=== PATIENT | male | born 1935 | race African-American/Black ===

== ENCOUNTER 2017-04-10 16:35 | Emergency (ER) | payer MEDICARE ==
[~2017-04-10] VITALS: Ht 188 cm; Wt 95.0 kg
[~2017-04-10 16:35] MED LIST: ASPI-516 CHEW; DOXA1TAB36 PO; GABA300C5 PO; GLIP10TA6 PO; GLIP5TAB8 PO; PRAV40TA2 PO
[2017-04-10 17:02] VITALS: BP 191/118; PULSE 110; RESP 32; TEMP 98.5; O2SAT 100
[2017-04-10] MEDS ORDERED: RESP: ALBUTEROL 2.5 MG/IPRATROPIUM 0.5 MG NEB (SCH) INH ONE (17:15)
[2017-04-10] MEDS ORDERED: SODIUM CHLORIDE 0.9% FLUSH 10 ML FLUSH IVF PRN (17:15)
[2017-04-10] MEDS ORDERED: AMLO5TAB2 PO (17:17)
[2017-04-10] MEDS ORDERED: METH1TAB25 (17:17)
[2017-04-10] MEDS ORDERED: OCUVTAB PO (17:17)
[2017-04-10] MEDS ORDERED: FEXO15TA PO (17:17)
[2017-04-10] MEDS ORDERED: MULT-84 (17:17)
[2017-04-10] MEDS ORDERED: ATOR40TA16 PO (17:17)
[2017-04-10] MEDS ORDERED: OMEG100046 (17:17)
--- NOTE | 2017-04-10 17:20 | PD ---
HPI Chief Complaint: Respiratory Symptoms Time Seen by Provider: 17:13 Travel History International Travel<30 days: No Contact w/Intl Traveler<30days: No Traveled to known affect area: No History of Present Illness HPI 81-year-old male patient with history of atrial fibrillation, hypertension, diabetes, presents to the ER after 3 week cruise complaining of bilateral foot pain, he states that it comes and goes and is currently a 3 out of 10 in the bottom of his left foot. While being examined, he was noted to be an mild respiratory distress and tachypneic. Patient states that he has noticed that her last few days. He has not noticed any foot swelling or leg pains. He denies any chest pains, or fevers or other symptoms. However, he does note that he has been sweaty a lot. Modifying Factors: None Associated Signs & Symptoms: Tachypneic, bilateral foot pains Risk Factors: Recent cruise, A. fib PFSH Past Medical History Hx Anticoagulant Therapy: Yes (asa 81mg) Arthritis: No Asthma: No Autoimmune Disease: No Heart Rhythm Problems: Yes Cancer: Yes (PROSTATE CA) Cardiovascular Problems: Yes High Cholesterol: Yes Chest Pain: No Congestive Heart Failure: No COPD: No Cerebrovascular Accident: No Diabetes: Yes Patient Takes Glucophage: No Diminished Hearing: No Endocrine: Yes GERD: No Glaucoma: No Genitourinary: Yes Headaches: No Hepatitis: No Hiatal Hernia: No Hypertension: Yes Immune Disorder: No Implanted Vascular Access Dvce: Yes Kidney Stones: No Musculoskeletal: No Neurologic: No Psychiatric: No Reproductive: No Respiratory: Yes Myocardial Infarction: No Radiation Therapy: Yes Renal Failure: No Seizures: No Sleep Apnea: Yes (BI PAP ) Thyroid Disease: No Ulcer: No PNEUMOCCOCAL Vaccine (Year): 2 ?: Not Past Surgical History Abdominal Surgery: Yes (APPENDIX ) AICD: No Appendectomy: Yes ("35 YEARS AGO") Cardiac Surgery: No Ear Surgery: No Endocrine Surgery: No Eye Surgery: Yes (LEFT CATARACT WITH LENS IMPLANT & LEFT EYE TEAR REPAIR) Genitourinary Surgery: No Gynecologic Surgery: No Pacemaker: No Thoracic Surgery: No Other Surgery: Yes Social History Alcohol Use: Yes (RARELY) Tobacco Use: No Substance Use: No Allergies-Medications (Allergen,Severity, Reaction): Coded Allergies: No Known Allergies (Verified , 04/18/16) Reported Meds & Prescriptions Reported Meds & Active Scripts Active Reported Ocuvite (Multiple Vitamins W/ Minerals) 1 Tab 1 Tab PO DAILY Fish Oil 1,000 mg Softgel ([place]-3/Dha/Epa/Fish Oil) 1,000 Mg (120 Mg-180 Mg) Capsule Daily Vitamin (Multiple Vitamin) 1 Tab Tab Msm (Methylsulfonylmethane) 1,000 Mg Tab Lily Allergy (Fexofenadine HCl) 180 Mg Tab 180 Mg PO DAILY Amlodipine (Amlodipine Besylate) 5 Mg Tab 5 Mg PO DAILY Atorvastatin (Atorvastatin Calcium) 40 Mg Tab 40 Mg PO HS Aspirin 81 Mg Chew 81 Mg CHEW HS Doxazosin (Doxazosin Mesylate) 1 Mg Tab 1 Mg PO HS Gabapentin 300 Mg Cap 300 Mg PO BID Glipizide 5 Mg Tab 5 Mg PO AC DINNER Take 30 minutes before a meal Glipizide 10 Mg Tab 10 Mg PO DAILY Take 30 minutes before a meal Review of Systems Except as stated in HPI: all other systems reviewed are Neg Physical Exam Narrative GENERAL: Well-developed elderly -[place] Citizen male patient currently in mild respiratory distress. Awake and oriented 3. SKIN: Focused skin assessment warm/mildly diaphoretic. HEAD: Atraumatic. Normocephalic. EYES: Pupils equal and round. No scleral icterus. No injection or drainage. ENT: No nasal bleeding or discharge. Mucous membranes pink and moist. NECK: Trachea midline. No JVD. CARDIOVASCULAR: Irregularly irregular. RESPIRATORY: No accessory muscle use. Clear to auscultation. Breath sounds equal bilaterally. GASTROINTESTINAL: Abdomen soft, non-tender, nondistended. Hepatic and splenic margins not palpable. MUSCULOSKELETAL: No obvious deformities. No clubbing. No cyanosis. No edema. EXTREMITIES: No clubbing, cyanosis, or edema. No joint tenderness, effusion, or edema noted. No calf tenderness. Bilateral Homans sign negative. Pulses are present and equal bilaterally. NEUROLOGICAL: Awake and alert. No obvious cranial nerve deficits. Motor grossly within normal limits. Normal speech. PSYCHIATRIC: Appropriate mood and affect; insight and judgment normal. Data Data Last Documented VS Vital Signs Date Time Temp Pulse Resp B/P (MAP) Pulse Ox O2 Delivery O2 Flow Rate FiO2 04/10/17 17:57 90 20 138/77 (97) 99 Nasal Cannula 2.00 04/10/17 17:02 98.5 Orders Orders Complete Blood Count With Diff (04/10/17 17:13) Comprehensive Metabolic Panel (04/10/17 17:13) B-Type Natriuretic Peptide (04/10/17 17:13) D-Dimer (04/10/17 17:13) Act Partial Throm Time (Ptt) (04/10/17 17:13) Prothrombin Time / Inr (Pt) (04/10/17 17:13) Ckmb (Isoenzyme) Profile (04/10/17 17:13) Troponin I (04/10/17 17:13) Iv Access Insert/Monitor (04/10/17 17:13) Electrocardiogram (04/10/17 17:13) Ecg Monitoring (04/10/17 17:13) Oximetry (04/10/17 17:13) Oxygen Administration (04/10/17 17:13) Chest, Single Ap (04/10/17 17:13) Sodium Chloride 0.9% Flush (Ns Flush) (04/10/17 17:15) Albuterol-Ipratropium Neb (Duoneb Neb) (04/10/17 17:15) CKMB (04/10/17 17:15) CKMB% (04/10/17 17:15) Ventilation & Perfusion Scan (04/10/17 17:58) Labs Laboratory Tests Test 04/10/17 17:15 White Blood Count 6.5 TH/MM3 Red Blood Count 5.05 MIL/MM3 Hemoglobin 13.9 GM/DL Hematocrit 45.6 % Mean Corpuscular Volume 90.1 FL Mean Corpuscular Hemoglobin 27.4 PG Mean Corpuscular Hemoglobin Concent 30.5 % Red Cell Distribution Width 13.1 % Platelet Count 227 TH/MM3 Mean Platelet Volume 9.0 FL Neutrophils (%) (Auto) 71.0 % Lymphocytes (%) (Auto) 21.2 % Monocytes (%) (Auto) 6.2 % Eosinophils (%) (Auto) 1.2 % Basophils (%) (Auto) 0.4 % Neutrophils # (Auto) 4.6 TH/MM3 Lymphocytes # (Auto) 1.4 TH/MM3 Monocytes # (Auto) 0.4 TH/MM3 Eosinophils # (Auto) 0.1 TH/MM3 Basophils # (Auto) 0.0 TH/MM3 CBC Comment AUTO DIFF Differential Comment AUTO DIFF CONFIRMED Platelet Estimate NORMAL Platelet Morphology Comment NORMAL Red Cell Morphology Comment NORMAL Prothrombin Time 11.0 SEC Prothromb Time International Ratio 1.1 RATIO Activated Partial Thromboplast Time 25.4 SEC D-Dimer Quantitative (PE/DVT) 1.52 MG/L FEU Blood Urea Nitrogen 20 MG/DL Creatinine 1.40 MG/DL Random Glucose 255 MG/DL Total Protein 7.5 GM/DL Albumin 3.9 GM/DL Calcium Level 8.9 MG/DL Alkaline Phosphatase 81 U/L Aspartate Amino Transf (AST/SGOT) 25 U/L Alanine Aminotransferase (ALT/SGPT) 27 U/L Total Bilirubin 1.2 MG/DL Sodium Level 135 MEQ/L Potassium Level 4.1 MEQ/L Chloride Level 102 MEQ/L Carbon Dioxide Level 21.0 MEQ/L Anion Gap 12 MEQ/L Estimat Glomerular Filtration Rate 59 ML/MIN Total Creatine Kinase 186 U/L Creatine Kinase MB 3.5 NG/ML Troponin I 0.02 NG/ML B-Type Natriuretic Peptide 77 PG/ML MDM Medical Decision Making Medical Screen Exam Complete: Yes Emergency Medical Condition: Yes Medical Record Reviewed: Yes Interpretation(s) EKG shows A. fib with aberrant conduction a rate of 80 bpm. Laboratory Tests Test 04/10/17 17:15 Mean Corpuscular Hemoglobin Concent 30.5 % (32.0-36.0) Neutrophils (%) (Auto) 71.0 % (16.0-70.0) D-Dimer Quantitative (PE/DVT) 1.52 MG/L FEU (0.00-0.50) Blood Urea Nitrogen 20 MG/DL (7-18) Creatinine 1.40 MG/DL (0.60-1.30) Random Glucose 255 MG/DL (74-106) Total Bilirubin 1.2 MG/DL (0.2-1.0) Sodium Level 135 MEQ/L (136-145) Estimat Glomerular Filtration Rate 59 ML/MIN (>89) Last 24 hours Impressions Chest X-Ray 04/10/17 7293 Signed Impressions: Service Date/Time: Monday, April 10, 2017 17:26 - CONCLUSION: 1. Lungs are clear. 2. Stable bony changes with a probable bone island in the anterior aspect of the right sixth rib and old healed fracture deformities of the anterolateral aspect of the left upper chest Khurram Vázquez MD Differential Diagnosis CHF versus pneumonia versus PE versus COPD exacerbation/bronchitis versus dysrhythmias Narrative Course Initial chest x-ray did not show any signs of acute pulmonary processes. He is in A. fib which she has history of. D-dimer is elevated and VQ scan was ordered for further evaluation. His creatinine is elevated and BUN is elevated as well. Examination of the foot did not show any signs of significant trauma or point tenderness. The area that appears he is having discomfort on is on the plantar foot. He does not a signs of trauma or ulcers. He denies any injuries. Neurovascularly intact. He apparently has had a similar episode before and it had gone away on its own. By time he got to the ER, the symptoms have gone away on the right foot and he is only having mild symptoms on the left foot. Physician Communication Physician Communication Case is signed out to Dr. Salazar at 7 PM pending VQ scan. Disposition based on VQ scan. Diagnosis Primary Impression: Foot pain, bilateral Additional Impression: Dyspnea on exertion Condition: Stable Fabricio Goldman MD Apr 10, 2017 17:20
[2017-04-10 17:21] VITALS: O2SAT 97
[2017-04-10 17:32] LABS: CHLORIDE 102 MEQ/L (98-107); POTASSIUM 4.1 MEQ/L (3.5-5.1); SODIUM (NA) 135 MEQ/L (136-145)
[2017-04-10 17:36] LABS: ANION GAP 12 MEQ/L (5-15); BLOOD UREA NITROGEN 20 MG/DL (7-18)
[2017-04-10 17:39] LABS: ALT (GPT) 27 U/L (12-78); AST (GOT) 25 U/L (15-37); GLOMERULAR FILTRATION RATE 59 ML/MIN (>89)
[2017-04-10 17:41] LABS: TOTAL BILIRUBIN ADULT 1.2 MG/DL (0.2-1.0)
[2017-04-10 17:42] LABS: ALKALINE PHOSPHATASE 81 U/L (45-117); CREATINE KINASE 186 U/L (39-308)
[2017-04-10 17:46] LABS: APTT (PATIENT) 25.4 SEC (24.3-30.1); INTERNATIONAL NORMALIZED RATIO 1.1 RATIO
[2017-04-10 17:49] LABS: AUTOMATED NEUTROPHIL # 4.6 TH/MM3 (1.8-7.7); BASOPHIL % 0.4 % (0.0-2.0); EOSINOPHIL # 0.1 TH/MM3 (0-0.4); EOSINOPHIL % 1.2 % (0.0-4.0); HEMATOCRIT 45.6 % (39.0-51.0); LYMPH % 21.2 % (9.0-44.0); LYMPHOCYTE # 1.4 TH/MM3 (1.0-4.8); MEAN CELL VOLUME 90.1 FL (80.0-100.0); MEAN CORPUSCULAR HEMOGLOBIN 27.4 PG (27.0-34.0); MEAN CORPUSCULAR HGB CONC 30.5 % (32.0-36.0); MONO % 6.2 % (0.0-8.0); PLATELET COUNT 227 TH/MM3 (150-450); RED BLOOD COUNT 5.05 MIL/MM3 (4.50-5.90); RED CELL DISTRIBUTION WIDTH 13.1 % (11.6-17.2); WHITE BLOOD COUNT 6.5 TH/MM3 (4.0-11.0)
--- NOTE | 2017-04-10 17:50 | RADRPT ---
EXAM DATE/TIME: 04/10/2017 17:26 [facility] COMPARISON: CHEST SINGLE AP, April 18, 2016, 10:14. INDICATIONS : Shortness of breath. MEDICAL HISTORY : None. SURGICAL HISTORY : None. ENCOUNTER: Initial ACUITY: 1 day PAIN SCORE: 0/10 LOCATION: Bilateral chest FINDINGS: A single view of the chest demonstrates the lungs to be symmetrically aerated without evidence of mas s, infiltrate or effusion. The cardiomediastinal contours are unremarkable. Stable, probable bone is land in the anterior aspect of the right sixth rib. Old healed fracture deformities the posterior lat eral aspect of the left upper chest. Mild degenerative spurring of the dorsal spine. CONCLUSION: 1. Lungs are clear. 2. Stable bony changes with a probable bone island in the anterior aspect of the right sixth rib and old healed fracture deformities of the anterolateral aspect of the left upper chest Khurram Vázquez MD on April 10, 2017 at 17:45 Board Certified Radiologist. This report was verified electronically.
[2017-04-10 17:55] LABS: CKMB 3.5 NG/ML (0.5-3.6)
[2017-04-10 17:57] VITALS: BP 138/77; PULSE 90; RESP 20; O2SAT 99
[2017-04-10 18:04] LABS: HEMO FLAGS AUTO DIFF
[2017-04-10 18:51] LABS: PLATELET ESTIMATE SMEAR NORMAL (NORMAL); PLATELET MORPHOLOGY NORMAL (NORMAL); SCAN/DIFF AUTO DIFF CONFIRMED
[2017-04-10 20:07] VITALS: BP 173/88; PULSE 91; RESP 16; O2SAT 99
--- NOTE | 2017-04-10 20:10 | RADRPT ---
EXAM DATE/TIME: 04/10/2017 19:03 [facility] COMPARISON: No previous studies available for comparison. INDICATIONS : Dyspnea and tachypneic. DOSE: 1.1 mCi Tc99m DTPA 8.8 mCi Tc99m MAA MEDICAL HISTORY : Carcinoma, prostate. Diabetes mellitus type 2. Hypertension. SURGICAL HISTORY : Appendectomy. ENCOUNTER: Initial ACUITY: 1 day PAIN SCALE: 0/10 LOCATION: Bilateral chest TECHNIQUE: Following five minutes of tidal breathing of DTPA aerosol, planar images of the lungs were performed in eight projections. The patient was then injected with MAA, and eight-view perfusion scan was perf ormed. FINDINGS: There is a homogeneous pattern of aerosol delivery to the periphery of both lungs. No focal ventilat ory defects are seen. The perfusion lung scan demonstrates a homogenous pattern of uptake in both lungs. No segmental or s ubsegmental defects are seen. CONCLUSION: 1. Negative for pulmonary embolism. Salvador Mathews MD on April 10, 2017 at 20:07 Board Certified Radiologist. This report was verified electronically.
--- NOTE | 2017-04-10 20:21 | PD ---
Physical Exam Narrative Patient signed out to me by Dr. Harp. Please see her documentation for complete details. 3, patient is an 81-year-old male who came in complaining of a tingling sensation in his feet. He says he believes he probably has neuropathy from his diabetes. He says the sensation is gone now. Per Dr. Harp, he appeared to On arrival. Patient states he never felt short of breath, but he does get very anxious when he comes to Hospital medical's when he starts breathing hard. He has been feeling fine, has not had any chest pain or cough or fevers. Currently he has no complaints. Exam shows lungs are clear to auscultation. Oxygen saturation is in the high 90s on room air. Pulse is in the 80s. Data Data Last Documented VS Vital Signs Date Time Temp Pulse Resp B/P (MAP) Pulse Ox O2 Delivery O2 Flow Rate FiO2 04/10/17 20:07 91 16 173/88 (116) 99 Nasal Cannula 2.00 04/10/17 17:02 98.5 Orders Orders Complete Blood Count With Diff (04/10/17 17:13) Comprehensive Metabolic Panel (04/10/17 17:13) B-Type Natriuretic Peptide (04/10/17 17:13) D-Dimer (04/10/17 17:13) Act Partial Throm Time (Ptt) (04/10/17 17:13) Prothrombin Time / Inr (Pt) (04/10/17 17:13) Ckmb (Isoenzyme) Profile (04/10/17 17:13) Troponin I (04/10/17 17:13) Iv Access Insert/Monitor (04/10/17 17:13) Electrocardiogram (04/10/17 17:13) Ecg Monitoring (04/10/17 17:13) Oximetry (04/10/17 17:13) Oxygen Administration (04/10/17 17:13) Chest, Single Ap (04/10/17 17:13) Sodium Chloride 0.9% Flush (Ns Flush) (04/10/17 17:15) Albuterol-Ipratropium Neb (Duoneb Neb) (04/10/17 17:15) CKMB (04/10/17 17:15) CKMB% (04/10/17 17:15) Ventilation & Perfusion Scan (04/10/17 17:58) Labs Laboratory Tests Test 04/10/17 17:15 White Blood Count 6.5 TH/MM3 Red Blood Count 5.05 MIL/MM3 Hemoglobin 13.9 GM/DL Hematocrit 45.6 % Mean Corpuscular Volume 90.1 FL Mean Corpuscular Hemoglobin 27.4 PG Mean Corpuscular Hemoglobin Concent 30.5 % Red Cell Distribution Width 13.1 % Platelet Count 227 TH/MM3 Mean Platelet Volume 9.0 FL Neutrophils (%) (Auto) 71.0 % Lymphocytes (%) (Auto) 21.2 % Monocytes (%) (Auto) 6.2 % Eosinophils (%) (Auto) 1.2 % Basophils (%) (Auto) 0.4 % Neutrophils # (Auto) 4.6 TH/MM3 Lymphocytes # (Auto) 1.4 TH/MM3 Monocytes # (Auto) 0.4 TH/MM3 Eosinophils # (Auto) 0.1 TH/MM3 Basophils # (Auto) 0.0 TH/MM3 CBC Comment AUTO DIFF Differential Comment AUTO DIFF CONFIRMED Platelet Estimate NORMAL Platelet Morphology Comment NORMAL Red Cell Morphology Comment NORMAL Prothrombin Time 11.0 SEC Prothromb Time International Ratio 1.1 RATIO Activated Partial Thromboplast Time 25.4 SEC D-Dimer Quantitative (PE/DVT) 1.52 MG/L FEU Blood Urea Nitrogen 20 MG/DL Creatinine 1.40 MG/DL Random Glucose 255 MG/DL Total Protein 7.5 GM/DL Albumin 3.9 GM/DL Calcium Level 8.9 MG/DL Alkaline Phosphatase 81 U/L Aspartate Amino Transf (AST/SGOT) 25 U/L Alanine Aminotransferase (ALT/SGPT) 27 U/L Total Bilirubin 1.2 MG/DL Sodium Level 135 MEQ/L Potassium Level 4.1 MEQ/L Chloride Level 102 MEQ/L Carbon Dioxide Level 21.0 MEQ/L Anion Gap 12 MEQ/L Estimat Glomerular Filtration Rate 59 ML/MIN Total Creatine Kinase 186 U/L Creatine Kinase MB 3.5 NG/ML Troponin I 0.02 NG/ML B-Type Natriuretic Peptide 77 PG/ML MDM Supervised Visit with JOSE A: No Narrative Course Troponin is negative. VQ scan is negative for PE. Patient is comfortable with discharge at this time. He is advised follow-up with his primary care doctor. Advised to return to the ED as needed for any worsening symptoms. Diagnosis Primary Impression: Neuropathy Patient Instructions: Diabetic Peripheral Neuropathy (ED), General Instructions Additional Instruction: Follow-up with your primary care doctor. He can take Tylenol for any pain. Return to the ED as needed for any worsening symptoms. Disposition: 01 DISCHARGE HOME Condition: Stable Monserrat Salazar MD Apr 10, 2017 20:21
--- NOTE | 2017-04-11 12:51 | EKG ---
Date Performed: 04/10/2017 Time Performed: 17:03:44 PTAGE: 81 years EKG: Atrial flutter with variable AV conduction Left axis deviation. Left anterior fascicular bl ock. Ventricular premature complex. Compared to PREVIOUS TRACING the patient is no longer is a Sinus rhythm . PREVIOUS TRACIN04/18/2016 13.42 DOCTOR: Raffy Waters Interpretating Date/Time 04/11/2017 12:49:32
== END 2017-04-10 20:58 | disposition home or self-care (01) ==
LOC: PHED 16:35
DX: E11.42 Type 2 diabetes mellitus with diabetic polyneuropathy (principal); E78.00 Pure hypercholesterolemia, unspecified; I10 Essential (primary) hypertension; M79.671 Pain in right foot; M79.672 Pain in left foot; R06.82 Tachypnea, not elsewhere classified; Z79.84 Long term (current) use of oral hypoglycemic drugs
CPT/HCPCS: 71010; 78582; 80053; 82550; 82552; 83880; 84484; 85025; 85379; 85610; 85730; 93005; 94664; 99285; A9540; A9567

== ENCOUNTER 2017-06-08 11:01 | Emergency (ER) | payer MEDICARE ==
[~2017-06-08] VITALS: Ht 188 cm; Wt 95.0 kg
[~2017-06-08 11:01] MED LIST changes: +AMLO5TAB2 PO; +ATOR40TA16 PO; +FEXO15TA PO; +METH1TAB25; +MULT-84; +OCUVTAB PO; +OMEG100046; -PRAV40TA2 PO
[2017-06-08 11:04] VITALS: BP 158/84; PULSE 65; RESP 16; TEMP 98.1; O2SAT 98
[2017-06-08] MEDS ORDERED: WARF-58 PO (11:25)
[2017-06-08] MEDS ORDERED: ECHI380C3 PO (11:25)
[2017-06-08] MEDS ORDERED: VITA250T25 PO (11:25)
[2017-06-08] MEDS ORDERED: VITA250T5 PO (11:25)
--- NOTE | 2017-06-08 11:39 | PD ---
HPI Chief Complaint: Edema Time Seen by Provider: 11:22 Travel History International Travel<30 days: No Contact w/Intl Traveler<30days: No Traveled to known affect area: No History of Present Illness HPI This 81-year-old male is complaining of pain in his left wrist. Says the pain started yesterday. It is been quite painful and is especially painful when he extends his fingers. He has not had any fever or chills. He has no history of gout or any other arthritis. He had does have a history of hypertension, diabetes and atrial fibrillation. He was started on Coumadin last week. He is not aware of any history of arthritis or other joint disease. He is quite active and does not recall any injury PFSH Past Medical History Hx Anticoagulant Therapy: Yes (COUMADIN) Arthritis: No Asthma: No Autoimmune Disease: No Heart Rhythm Problems: Yes Cancer: Yes (PROSTATE CA) Cardiovascular Problems: Yes High Cholesterol: Yes Chest Pain: No Congestive Heart Failure: No COPD: No Cerebrovascular Accident: No Diabetes: Yes Patient Takes Glucophage: No Diminished Hearing: No Endocrine: Yes GERD: No Glaucoma: No Genitourinary: Yes Headaches: No Hepatitis: No Hiatal Hernia: No Hypertension: Yes Immune Disorder: No Implanted Vascular Access Dvce: Yes Kidney Stones: No Musculoskeletal: No Neurologic: No Psychiatric: No Reproductive: No Respiratory: Yes Myocardial Infarction: No Radiation Therapy: Yes Renal Failure: No Seizures: No Sleep Apnea: Yes (BI PAP ) Thyroid Disease: No Ulcer: No Influenza Vaccination: Yes PNEUMOCCOCAL Vaccine (Year): 2 Past Surgical History Abdominal Surgery: Yes (APPENDIX ) AICD: No Appendectomy: Yes ("35 YEARS AGO") Cardiac Surgery: No Ear Surgery: No Endocrine Surgery: No Eye Surgery: Yes (LEFT CATARACT WITH LENS IMPLANT & LEFT EYE TEAR REPAIR) Genitourinary Surgery: No Gynecologic Surgery: No Pacemaker: No Thoracic Surgery: No Other Surgery: Yes Social History Alcohol Use: Yes (RARELY) Tobacco Use: No Substance Use: No Allergies-Medications (Allergen,Severity, Reaction): Coded Allergies: No Known Allergies (Verified Adverse Reaction, Unknown, 06/08/17) Reported Meds & Prescriptions Reported Meds & Active Scripts Active Reported Warfarin 3 Mg Tab 3 Mg PO DAILY Vitamin B-12 (Cyanocobalamin) 250 Mcg Tab 250 Mcg PO DAILY Vitamin B-1 (Thiamine HCl) 250 Mg Tab 250 Mg PO DAILY Echinacea Herb (Echinacea) 380 Mg Capsule 760 Mg PO DAILY Ocuvite (Multiple Vitamins W/ Minerals) 1 Tab 1 Tab PO DAILY Fish Oil 1,000 mg Softgel ([place]-3/Dha/Epa/Fish Oil) 1,000 Mg (120 Mg-180 Mg) Capsule Daily Vitamin (Multiple Vitamin) 1 Tab Tab Msm (Methylsulfonylmethane) 1,000 Mg Tab Lily Allergy (Fexofenadine HCl) 180 Mg Tab 180 Mg PO DAILY Amlodipine (Amlodipine Besylate) 5 Mg Tab 5 Mg PO DAILY Atorvastatin (Atorvastatin Calcium) 40 Mg Tab 40 Mg PO HS Doxazosin (Doxazosin Mesylate) 1 Mg Tab 1 Mg PO HS Gabapentin 300 Mg Cap 300 Mg PO BID Glipizide 5 Mg Tab 10 Mg PO AC DINNER Take 30 minutes before a meal Glipizide 10 Mg Tab 10 Mg PO DAILY Take 30 minutes before a meal Review of Systems General / Constitutional: No: Fever, Chills Eyes: No: Blurred Vision, Photophobia HENT: No: Headaches, Vertigo Cardiovascular: No: Chest Pain or Discomfort, Palpitations Respiratory: No: Cough, Shortness of Breath Gastrointestinal: No: Nausea, Vomiting Genitourinary: No: Urgency, Frequency Musculoskeletal: Positive: Arthralgias, Pain Skin: No Rash, No Itching Neurologic: No: Weakness Psychiatric: No: Anxiety Hematologic/Lymphatic: No: Easy Bruising Physical Exam Narrative GENERAL: Well-developed male appears much younger than his stated age SKIN: Focused skin assessment warm/dry. HEAD: Atraumatic. Normocephalic. EYES: Pupils equal and round. No scleral icterus. No injection or drainage. ENT: No nasal bleeding or discharge. Mucous membranes pink and moist. NECK: Trachea midline. No JVD. MUSCULOSKELETAL: No obvious deformities. No clubbing. No cyanosis. No edema. Examination of the left wrist shows some tenderness on the dorsum of the wrist. It is not warm. Minimal swelling. Any movement is uncomfortable NEUROLOGICAL: Awake and alert. No obvious cranial nerve deficits. Motor grossly within normal limits. Normal speech. PSYCHIATRIC: Appropriate mood and affect; insight and judgment normal. Data Data Last Documented VS Vital Signs Date Time Temp Pulse Resp B/P (MAP) Pulse Ox O2 Delivery O2 Flow Rate FiO2 06/08/17 11:04 98.1 65 16 158/84 (108) 98 Orders Orders Wrist, Complete ([id number]) (06/08/17 11:29) Complete Blood Count With Diff (06/08/17 11:33) Basic Metabolic Panel (Bmp) (06/08/17 11:33) Prothrombin Time / Inr (Pt) (06/08/17 11:33) Act Partial Throm Time (Ptt) (06/08/17 11:33) Acetamin-Hydrocod 325-5 Mg (Ridgely 5-325 (06/08/17 11:45) Uric Acid (06/08/17 11:33) Splint Or Brace Apply/Monitor (06/08/17 11:35) Labs Laboratory Tests Test 06/08/17 11:45 White Blood Count 8.1 TH/MM3 Red Blood Count 4.51 MIL/MM3 Hemoglobin 12.7 GM/DL Hematocrit 40.3 % Mean Corpuscular Volume 89.2 FL Mean Corpuscular Hemoglobin 28.1 PG Mean Corpuscular Hemoglobin Concent 31.6 % Red Cell Distribution Width 12.9 % Platelet Count 196 TH/MM3 Mean Platelet Volume 8.5 FL Neutrophils (%) (Auto) 78.1 % Lymphocytes (%) (Auto) 12.3 % Monocytes (%) (Auto) 8.4 % Eosinophils (%) (Auto) 0.6 % Basophils (%) (Auto) 0.6 % Neutrophils # (Auto) 6.4 TH/MM3 Lymphocytes # (Auto) 1.0 TH/MM3 Monocytes # (Auto) 0.7 TH/MM3 Eosinophils # (Auto) 0.0 TH/MM3 Basophils # (Auto) 0.0 TH/MM3 CBC Comment DIFF FINAL Differential Comment Prothrombin Time 11.5 SEC Prothromb Time International Ratio 1.1 RATIO Activated Partial Thromboplast Time 26.4 SEC Blood Urea Nitrogen 19 MG/DL Creatinine 1.50 MG/DL Random Glucose 225 MG/DL Calcium Level 8.4 MG/DL Sodium Level 135 MEQ/L Potassium Level 4.0 MEQ/L Chloride Level 102 MEQ/L Carbon Dioxide Level 27.1 MEQ/L Anion Gap 6 MEQ/L Estimat Glomerular Filtration Rate 54 ML/MIN MDM Medical Decision Making Medical Screen Exam Complete: Yes Emergency Medical Condition: Yes Medical Record Reviewed: Yes Differential Diagnosis Differential includes arthritis, septic arthritis, tendinitis Narrative Course X-ray shows no evidence of recent injury. There is a cystic appearance the carpus navicular which could represent arthropathy or bone cyst. 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 His white count is normal. This is not suspicious for septic arthritis. It is not hot to palpate and not erythematous. I don't believe there is an effusion of the wrist. I think this is tendinitis. He has just been started on Coumadin though his INR is not at all therapeutic. I'm reluctant to prescribe anti-inflammatory medications. He is quite uncomfortable with pain and I will prescribe Lortab for pain. I will also give him a single dose of prednisone I'm reluctant to give a course in view of his diabetic history and blood sugar of 225 Diagnosis Primary Impression: Tendonitis of wrist, left Scripts Hydrocodone-Acetaminophen (Hydrocodone-Acetaminophen) 7.5 Mg-325 Mg Tab 1 TAB PO Q6H Y for PAIN, #15 TAB 0 Refills Prov: Xu Tsai MD 06/08/17 Disposition: DISCHARGE HOME Condition: Stable Xu Tsai MD Jun 08, 2017 11:39
[2017-06-08] MEDS ORDERED: ACETAMINOPHEN/HYDROcodone 325 MG/5 MG TAB PO ONE (11:45)
[2017-06-08 11:56] LABS: AUTOMATED NEUTROPHIL # 6.4 TH/MM3 (1.8-7.7); BASOPHIL % 0.6 % (0.0-2.0); EOSINOPHIL % 0.6 % (0.0-4.0); HEMATOCRIT 40.3 % (39.0-51.0); HEMOGLOBIN 12.7 GM/DL (13.0-17.0); LYMPH % 12.3 % (9.0-44.0); MEAN CELL VOLUME 89.2 FL (80.0-100.0); MEAN CORPUSCULAR HEMOGLOBIN 28.1 PG (27.0-34.0); MEAN CORPUSCULAR HGB CONC 31.6 % (32.0-36.0); MEAN PLATELET VOLUME 8.5 FL (7.0-11.0); MONO % 8.4 % (0.0-8.0); MONOCYTE # 0.7 TH/MM3 (0-0.9); NEUT % 78.1 % (16.0-70.0); PLATELET COUNT 196 TH/MM3 (150-450); RED BLOOD COUNT 4.51 MIL/MM3 (4.50-5.90); RED CELL DISTRIBUTION WIDTH 12.9 % (11.6-17.2); WHITE BLOOD COUNT 8.1 TH/MM3 (4.0-11.0)
[2017-06-08 12:08] LABS: BICARBONATE 27.1 MEQ/L (21.0-32.0); CALCIUM 8.4 MG/DL (8.5-10.1); INTERNATIONAL NORMALIZED RATIO 1.1 RATIO; PROTHROMBIN TIME - PATIENT 11.5 SEC (9.8-11.6)
[2017-06-08 12:12] LABS: CREATININE 1.5 MG/DL (0.60-1.30)
[2017-06-08 12:20] VITALS: BP 139/89; PULSE 78; RESP 16; O2SAT 96
--- NOTE | 2017-06-08 12:33 | RADRPT ---
EXAM DATE/TIME: 06/08/2017 11:47 [facility] COMPARISON: No previous studies available for comparison. INDICATIONS : Left wrist pain, no known injury. MEDICAL HISTORY : None. SURGICAL HISTORY : None. ENCOUNTER: Initial ACUITY: 2 days PAIN SCORE: 10/10 LOCATION: Left wrist FINDINGS: Three-view examination of the wrist demonstrates a multicystic appearance to the proximal navicular w ithout evidence of fracture. The alignment of the carpal bones is maintained. There is prominent calc ification of the region of the triangular fibrocartilage. Scapholunate distance is normal. No fractur e seen. There is moderate deep soft tissue swelling with displacement of the pronator quadratus fat p terese. CONCLUSION: 1. No evidence of recent bone injury. 2. Cystic appearance to the carpus navicular could represent arthropathy or bone cyst. 3. Chondrocalcinosis of the triangular fibrocartilage. Sherman Bradley MD on June 08, 2017 at 12:28 Board Certified Radiologist. This report was verified electronically.
[2017-06-08] MEDS ORDERED: HYDR-3580 PO (12:39)
[2017-06-08 13:02] VITALS: BP 146/91
[2017-06-08 13:12] VITALS: RESP 17
== END 2017-06-08 13:04 | disposition home or self-care (01) ==
LOC: PHED 11:01
DX: M77.9 Enthesopathy, unspecified (principal); I48.91 Unspecified atrial fibrillation; I10 Essential (primary) hypertension; E11.9 Type 2 diabetes mellitus without complications; E78.00 Pure hypercholesterolemia, unspecified; Z85.46 Personal history of malignant neoplasm of prostate; Z79.01 Long term (current) use of anticoagulants
CPT/HCPCS: 73110; 80048; 84550; 85025; 85610; 85730; 99284; L3908

== ENCOUNTER 2017-08-07 19:23 | Observation (INO) | payer MEDICARE ==
[~2017-08-07] VITALS: Ht 188 cm; Wt 94.5 kg
[~2017-08-07 19:23] MED LIST changes: -ASPI-516 CHEW; +ECHI380C3 PO; +HYDR-3580 PO; +VITA250T25 PO; +VITA250T5 PO; +WARF-58 PO
[2017-08-07 19:49] VITALS: BP 151/98; PULSE 63; RESP 18; TEMP 97.7; O2SAT 97
[2017-08-07] MEDS ORDERED: WARF-23 PO (20:10)
[2017-08-07] MEDS ORDERED: AMLO5TAB2 PO (20:10)
[2017-08-07] MEDS ORDERED: TEMA15CA PO (20:10)
[2017-08-07 20:11] VITALS: O2SAT 98
[2017-08-07] MEDS ORDERED: SODIUM CHLORIDE 0.9% FLUSH 10 ML FLUSH IV FLUSH PRN ×2 (20:15→22:30)
--- NOTE | 2017-08-07 20:15 | PD ---
HPI Chief Complaint: Diabetic Time Seen by Provider: 19:57 Travel History International Travel<30 days: No Contact w/Intl Traveler<30days: No Traveled to known affect area: No History of Present Illness HPI Patient is a 81-year-old male with history of diabetes currently taking glipizide 10 mg daily, metformin 250 mg daily, presents the emergency room with complaints of episodes of hypoglycemia. Patient reports that he took his blood sugar this afternoon around 4 PM and noted to be 48. Patient reports that when he has hypoglycemic episodes, he gets shaky episodes and "does not feel right." Patient reports that he ate a candy bar and drink orange juice, reports that he rechecked his blood sugar prior to coming to the emergency room and it was 78. Patient came to the emergency room to try to figure out why his blood sugar dropped. Blood sugar in the triage was 66. Patient reports that this morning, he ate a meal, reports that shortly thereafter, he also ate some cornflakes as he felt his blood sugar was dropping. Patient reports that he did not eat lunch today and has not eaten dinner. Reports that he does take glipizide 10 mg twice daily, reports that his nighttime dose of medication is usually taken with his dinner which he has not eaten yet. Denies fever/chills. Denies any chest pain /sob. Denies any nausea or vomiting. Patient reports that he feels fine at this time, patient with no complaints. PFSH Past Medical History Hx Anticoagulant Therapy: Yes (COUMADIN) Arthritis: No Asthma: No Autoimmune Disease: No Heart Rhythm Problems: Yes Cancer: Yes (PROSTATE CA) Cardiovascular Problems: Yes High Cholesterol: Yes Chest Pain: No Congestive Heart Failure: No COPD: No Cerebrovascular Accident: No Diabetes: Yes Diminished Hearing: No Endocrine: Yes GERD: No Glaucoma: No Genitourinary: Yes Headaches: No Hepatitis: No Hiatal Hernia: No Hypertension: Yes Immune Disorder: No Implanted Vascular Access Dvce: Yes Kidney Stones: No Musculoskeletal: No Neurologic: No Psychiatric: No Reproductive: No Respiratory: Yes Myocardial Infarction: No Radiation Therapy: Yes Renal Failure: No Seizures: No Sleep Apnea: Yes (BI PAP ) Thyroid Disease: No Ulcer: No PNEUMOCCOCAL Vaccine (Year): 2 Past Surgical History Abdominal Surgery: Yes (APPENDIX ) AICD: No Appendectomy: Yes ("35 YEARS AGO") Cardiac Surgery: No Ear Surgery: No Endocrine Surgery: No Eye Surgery: Yes (LEFT CATARACT WITH LENS IMPLANT & LEFT EYE TEAR REPAIR) Genitourinary Surgery: No Gynecologic Surgery: No Pacemaker: No Thoracic Surgery: No Other Surgery: Yes Social History Alcohol Use: Yes (RARELY) Tobacco Use: No Substance Use: No Allergies-Medications (Allergen,Severity, Reaction): Coded Allergies: No Known Allergies (Verified Adverse Reaction, Unknown, 08/07/17) Reported Meds & Prescriptions Reported Meds & Active Scripts Active Reported Temazepam 15 Mg Cap 15 Mg PO HS PRN Warfarin 5 Mg Tab 5 Mg PO DAILY Amlodipine (Amlodipine Besylate) 5 Mg Tab 5 Mg PO DAILY Vitamin B-12 (Cyanocobalamin) 250 Mcg Tab 250 Mcg PO DAILY Vitamin B-1 (Thiamine HCl) 250 Mg Tab 250 Mg PO DAILY Echinacea Herb (Echinacea) 380 Mg Capsule 760 Mg PO DAILY Ocuvite (Multiple Vitamins W/ Minerals) 1 Tab 1 Tab PO DAILY Fish Oil 1,000 mg Softgel ([place]-3/Dha/Epa/Fish Oil) 1,000 Mg (120 Mg-180 Mg) Capsule Msm (Methylsulfonylmethane) 1,000 Mg Tab Lily Allergy (Fexofenadine HCl) 180 Mg Tab 180 Mg PO DAILY Atorvastatin (Atorvastatin Calcium) 40 Mg Tab 40 Mg PO HS Doxazosin (Doxazosin Mesylate) 1 Mg Tab 1 Mg PO HS Gabapentin 300 Mg Cap 300 Mg PO BID Glipizide 5 Mg Tab 10 Mg PO AC DINNER Take 30 minutes before a meal Glipizide 10 Mg Tab 10 Mg PO DAILY Take 30 minutes before a meal Review of Systems General / Constitutional: No: Fever Eyes: No: Visual changes HENT: No: Headaches Cardiovascular: No: Chest Pain or Discomfort Respiratory: No: Shortness of Breath Gastrointestinal: No: Abdominal Pain Genitourinary: No: Dysuria Musculoskeletal: No: Pain Skin: No Rash Neurologic: No: Weakness Psychiatric: No: Depression Endocrine: No: Polydipsia Hematologic/Lymphatic: No: Easy Bruising Physical Exam Narrative GENERAL: NAD SKIN: Focused skin assessment warm/dry. HEAD: Atraumatic. Normocephalic. EYES: Pupils equal and round. No scleral icterus. No injection or drainage. ENT: No nasal bleeding or discharge. Mucous membranes pink and moist. NECK: Trachea midline. No JVD. CARDIOVASCULAR: Regular rate and rhythm. No murmur appreciated. RESPIRATORY: No accessory muscle use. Clear to auscultation. Breath sounds equal bilaterally. GASTROINTESTINAL: Abdomen soft, non-tender, nondistended. Hepatic and splenic margins not palpable. MUSCULOSKELETAL: No obvious deformities. No clubbing. No cyanosis. No edema. NEUROLOGICAL: Awake and alert. No obvious cranial nerve deficits. Motor grossly within normal limits. Normal speech. PSYCHIATRIC: Appropriate mood and affect; insight and judgment normal. Data Data Last Documented VS Vital Signs Date Time Temp Pulse Resp B/P (MAP) Pulse Ox O2 Delivery O2 Flow Rate FiO2 08/07/17 21:29 55 16 157/81 (106) 100 Room Air 08/07/17 19:49 97.7 Orders Orders Complete Blood Count With Diff (08/07/17 20:05) Comprehensive Metabolic Panel (08/07/17 20:05) Urinalysis - C+S If Indicated (08/07/17 20:05) Iv Access Insert/Monitor (08/07/17 20:05) Ecg Monitoring (08/07/17 20:05) Oximetry (08/07/17 20:05) Sodium Chloride 0.9% Flush (Ns Flush) (08/07/17 20:15) Electrocardiogram (08/07/17 20:05) Blood Glucose (08/07/17 20:05) Blood Glucose (08/07/17 20:35) Blood Glucose (08/07/17 20:05) Blood Glucose (08/07/17 21:05) Prothrombin Time / Inr (Pt) (08/07/17 20:09) Act Partial Throm Time (Ptt) (08/07/17 20:09) Labs Laboratory Tests Test 08/07/17 20:30 08/07/17 21:25 White Blood Count 4.9 TH/MM3 Red Blood Count 3.95 MIL/MM3 Hemoglobin 11.9 GM/DL Hematocrit 35.2 % Mean Corpuscular Volume 89.2 FL Mean Corpuscular Hemoglobin 30.1 PG Mean Corpuscular Hemoglobin Concent 33.7 % Red Cell Distribution Width 14.9 % Platelet Count 176 TH/MM3 Mean Platelet Volume 8.2 FL Neutrophils (%) (Auto) 57.6 % Lymphocytes (%) (Auto) 24.6 % Monocytes (%) (Auto) 11.3 % Eosinophils (%) (Auto) 5.9 % Basophils (%) (Auto) 0.6 % Neutrophils # (Auto) 2.8 TH/MM3 Lymphocytes # (Auto) 1.2 TH/MM3 Monocytes # (Auto) 0.6 TH/MM3 Eosinophils # (Auto) 0.3 TH/MM3 Basophils # (Auto) 0.0 TH/MM3 CBC Comment DIFF FINAL Differential Comment Prothrombin Time 20.5 SEC Prothromb Time International Ratio 2.0 RATIO Activated Partial Thromboplast Time 28.2 SEC Blood Urea Nitrogen 12 MG/DL Creatinine 1.30 MG/DL Random Glucose 74 MG/DL Total Protein 6.5 GM/DL Albumin 3.4 GM/DL Calcium Level 9.0 MG/DL Alkaline Phosphatase 75 U/L Aspartate Amino Transf (AST/SGOT) 21 U/L Alanine Aminotransferase (ALT/SGPT) 23 U/L Total Bilirubin 0.6 MG/DL Sodium Level 141 MEQ/L Potassium Level 4.6 MEQ/L Chloride Level 108 MEQ/L Carbon Dioxide Level 27.7 MEQ/L Anion Gap 5 MEQ/L Estimat Glomerular Filtration Rate 64 ML/MIN Urine Color YELLOW Urine Turbidity CLEAR Urine pH 6.0 Urine Specific [place] LESS/EQUAL 1.005 Urine Protein NEG mg/dL Urine Glucose (UA) NEG mg/dL Urine Ketones NEG mg/dL Urine Occult Blood NEG Urine Nitrite NEG Urine Bilirubin NEG Urine Urobilinogen 0.2 MG/DL Urine Leukocyte Esterase NEG Urine Squamous Epithelial Cells 0-5 /hpf Microscopic Urinalysis Comment CULT NOT INDICATED MDM Medical Decision Making Medical Screen Exam Complete: Yes Emergency Medical Condition: Yes Medical Record Reviewed: Yes Interpretation(s) EKG at 2032: atrial flutter at 50bpm Vital Signs Date Time Temp Pulse Resp B/P (MAP) Pulse Ox O2 Delivery O2 Flow Rate FiO2 08/07/17 19:49 97.7 63 18 151/98 (115) 97 Differential Diagnosis Electrolyte abnormality Narrative Course During the course of the patients emergency department visit, the patients history, examination, and differential diagnosis were reviewed with the patient. The patient was placed on a air traffic supervisor with oximetry and frequent blood pressure monitoring. The patient had an IV access obtained and blood work sent for analysis. BS 66 while in the ER. The patient was initially provided meal tray. Patient currently asymptomatic 2115: BS now 101 2210: BS now 61 The patients laboratory studies were reviewed and remarkable for: CBC & BMP Diagram 08/07/17 20:30 Total Protein 6.5, Albumin 3.4, Calcium Level 9.0, Alkaline Phosphatase 75, Aspartate Amino Transf (AST/SGOT) 21, Alanine Aminotransferase (ALT/SGPT) 23, Total Bilirubin 0.6 Patient with significant drop in blood sugar, patient will require observation to the hospital for blood sugar monitoring. Diagnosis Primary Impression: Hypoglycemia Admitting Information Admitting Physician Requests: Observation Mana Garcia DO Aug 07, 2017 20:15
[2017-08-07 20:44] LABS: AUTOMATED NEUTROPHIL # 2.8 TH/MM3 (1.8-7.7); BASOPHIL % 0.6 % (0.0-2.0); EOSINOPHIL # 0.3 TH/MM3 (0-0.4); EOSINOPHIL % 5.9 % (0.0-4.0); HEMATOCRIT 35.2 % (39.0-51.0); HEMOGLOBIN 11.9 GM/DL (13.0-17.0); LYMPH % 24.6 % (9.0-44.0); LYMPHOCYTE # 1.2 TH/MM3 (1.0-4.8); MEAN CELL VOLUME 89.2 FL (80.0-100.0); MEAN CORPUSCULAR HEMOGLOBIN 30.1 PG (27.0-34.0); MEAN CORPUSCULAR HGB CONC 33.7 % (32.0-36.0); MEAN PLATELET VOLUME 8.2 FL (7.0-11.0); MONO % 11.3 % (0.0-8.0); MONOCYTE # 0.6 TH/MM3 (0-0.9); NEUT % 57.6 % (16.0-70.0); PLATELET COUNT 176 TH/MM3 (150-450); RED BLOOD COUNT 3.95 MIL/MM3 (4.50-5.90); RED CELL DISTRIBUTION WIDTH 14.9 % (11.6-17.2); WHITE BLOOD COUNT 4.9 TH/MM3 (4.0-11.0)
[2017-08-07 20:54] LABS: CHLORIDE 108 MEQ/L (98-107); SODIUM (NA) 141 MEQ/L (136-145)
[2017-08-07 20:57] LABS: ALBUMIN 3.4 GM/DL (3.4-5.0); BICARBONATE 27.7 MEQ/L (21.0-32.0); BLOOD UREA NITROGEN 12 MG/DL (7-18); GLUCOSE,RANDOM 74 MG/DL (74-106)
[2017-08-07 21:00] LABS: ALT (GPT) 23 U/L (12-78); AST (GOT) 21 U/L (15-37); GLOMERULAR FILTRATION RATE 64 ML/MIN (>89)
[2017-08-07 21:01] LABS: PROTHROMBIN TIME - PATIENT 20.5 SEC (9.8-11.6)
[2017-08-07 21:02] LABS: TOTAL BILIRUBIN ADULT 0.6 MG/DL (0.2-1.0); TOTAL PROTEIN 6.5 GM/DL (6.4-8.2)
[2017-08-07 21:03] LABS: ALKALINE PHOSPHATASE 75 U/L (45-117)
[2017-08-07 21:29] VITALS: BP 157/81; PULSE 55; RESP 16; O2SAT 100
--- NOTE | 2017-08-07 21:32 | EKG ---
Date Performed: 08/07/2017 Time Performed: 20:33:23 PTAGE: 81 years EKG: ATRIAL FLUTTER/TACHYCARDIA WITH SLOW VENTRICULAR RESPONSE POSSIBLE LEFT VENTRICULAR HYPERTR OPHY Cannot rule out LATERAL MYOCARDIAL INFARCTION ABNORMAL ECG Compared to prior electrocardiogram, rate has decreased PREVIOUS TRACING : 04/10/2017 17.03 DOCTOR: Dionisio Lazcano Interpretating Date/Time 08/07/2017 21:32:18
[2017-08-07 21:47] LABS: BILIRUBIN, URINE NEG (NEG); BLOOD, URINE NEG (NEG); GLUCOSE,URINE NEG (NEG); KETONE, URINE NEG (NEG); NITRITE,URINE NEG (NEG); URINE COLOR YELLOW (YELLW/STRAW); URINE LEUKOCYTE ESTERASE NEG (NEG)
[2017-08-07 22:04] LABS: SQUAMOUS EPITHELIAL CELL URINE 0-5 /hpf (0-5)
[2017-08-07] MEDS ORDERED: ACETAMINOPHEN 325 MG TAB PO PRN (22:30)
[2017-08-07] MEDS ORDERED: ONDANSETRON HCL 4 MG/2 ML VIAL IVP PRN (22:30)
[2017-08-07] MEDS ORDERED: NALOXONE HCL 0.4 MG/ML AMP IV PUSH PRN (22:30)
[2017-08-07] MEDS ORDERED: GLUCAGON 1 MG/ML VIAL OTHER PRN (22:30)
[2017-08-07] MEDS ORDERED: DEXTROSE 50% IN WATER 50 ML VIAL(D50) IV PUSH PRN (22:30)
[2017-08-07 23:29] VITALS: BP 144/86; PULSE 55; RESP 16; O2SAT 98
[2017-08-08] VITALS: BP 153/77; PULSE 54; RESP 20; TEMP 97.5; O2SAT 100
[2017-08-08 00:26] VITALS: BP 152/82
[2017-08-08 07:52] LABS: AUTOMATED NEUTROPHIL # 1.4 TH/MM3 (1.8-7.7); EOSINOPHIL # 0.3 TH/MM3 (0-0.4); EOSINOPHIL % 7.9 % (0.0-4.0); HEMATOCRIT 37.1 % (39.0-51.0); HEMOGLOBIN 11.8 GM/DL (13.0-17.0); LYMPH % 43.3 % (9.0-44.0); LYMPHOCYTE # 1.8 TH/MM3 (1.0-4.8); MEAN CELL VOLUME 89.3 FL (80.0-100.0); MEAN CORPUSCULAR HEMOGLOBIN 28.3 PG (27.0-34.0); MEAN CORPUSCULAR HGB CONC 31.7 % (32.0-36.0); MONO % 11.1 % (0.0-8.0); MONOCYTE # 0.4 TH/MM3 (0-0.9); NEUT % 36.7 % (16.0-70.0); PLATELET COUNT 175 TH/MM3 (150-450); RED BLOOD COUNT 4.16 MIL/MM3 (4.50-5.90); RED CELL DISTRIBUTION WIDTH 14.3 % (11.6-17.2); WHITE BLOOD COUNT 3.9 TH/MM3 (4.0-11.0)
[2017-08-08 07:56] LABS: CALCIUM 8.9 MG/DL (8.5-10.1)
[2017-08-08 07:57] LABS: BICARBONATE 27.4 MEQ/L (21.0-32.0)
[2017-08-08 08:00] VITALS: BP 150/86; PULSE 57; RESP 18; TEMP 96.8; O2SAT 99
[2017-08-08 08:00] LABS: CREATININE 1.2 MG/DL (0.60-1.30)
[2017-08-08] MEDS ORDERED: SODIUM CHLORIDE 0.9% FLUSH 10 ML FLUSH IV FLUSH SCH (09:00)
--- NOTE | 2017-08-08 12:32 | HHI.HP ---
[facility] Varun Wu MD Admission Diagnosis Hypoglycemia Diagnoses: Travel History International Travel<30 Days: No Contact w/Intl Traveler <30 Da: No Traveled to Known Affected Are: No History of Present Illness blood sugars were low around 5p.m. last night and BS were 48, with symptoms in er, BS was 103 or so after treatment then went back down to 60s and admitted to hospital on glipizide 10mg daiily and meformin is 250mg po daily diagnosed with dm only 1 yr ago has been on glipizide for the whole time metformin was added 2 weeks ago usually checks his BS at home- but never write it down and show it to his doc but BS at home usually are in the 80s and 90s- morning preprandial sugars ar 67 sometimes- eat orange juice, gram cracker, snicker bar Review of Systems Except as stated in HPI: all other systems reviewed are Neg Past Family Social History Past Medical History htn dm hx of prostate ca- s/p radiation treatment- 5.5 yrs ago neuropathy 1993- syncope frequent- in [place]- was transferred to [facility]- 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- but was having some blockage then- and was started on ASA then clin asst- Dr Mitchell started him on coumadin- to prevent strokes due to this- started only 2.5 months ago hx of accerlated idoventricular rhtyhm Past Surgical History appendectomy Allergies: Coded Allergies: No Known Allergies (Verified Adverse Reaction, Unknown, 08/07/17) Family History mother, father, brother- heart problems (66,65,59 respectively) Social History never smoked no drugs no etoh abuse Physical Exam Vital Signs Vital Signs Date Time Temp Pulse Resp B/P (MAP) Pulse Ox O2 Delivery O2 Flow Rate FiO2 08/08/17 08:00 96.8 57 18 150/86 (107) 99 08/08/17 00:26 50 18 152/82 (105) 98 08/08/17 00:00 97.5 54 20 153/77 (102) 100 4/9/18 23:29 55 16 144/86 (105) 98 Room Air 08/07/17 21:29 55 16 157/81 (106) 100 Room Air 08/07/17 20:11 98 Room Air 08/07/17 20:07 Room Air 08/07/17 19:49 97.7 63 18 151/98 (115) 97 Physical Exam GENERAL: This is a well-nourished, well-developed patient, in no apparent distress. SKIN: No rashes, ecchymoses or lesions. Cool and dry. HEAD: Atraumatic. Normocephalic. No temporal or scalp tenderness. EYES: Pupils equal round and reactive. Extraocular motions intact. No scleral icterus. No injection or drainage. ENT: Nose without bleeding, purulent drainage or septal hematoma. Throat without erythema, tonsillar hypertrophy or exudate. Uvula midline. Airway patent. NECK: Trachea midline. No JVD or lymphadenopathy. Supple, nontender, no meningeal signs. CARDIOVASCULAR: Regular rate and rhythm without murmurs, gallops, or rubs. RESPIRATORY: Clear to auscultation. Breath sounds equal bilaterally. No wheezes , rales, or rhonchi. GASTROINTESTINAL: Abdomen soft, non-tender, nondistended. No hepato-splenomegaly , or palpable masses. No guarding. MUSCULOSKELETAL: Extremities without clubbing, cyanosis, or edema. No joint tenderness, effusion, or edema noted. No calf tenderness. Negative Homans sign bilaterally. NEUROLOGICAL: Awake and alert. Cranial nerves II through XII intact. Motor and sensory grossly within normal limits. Five out of 5 muscle strength in all muscle groups. Normal speech. Laboratory Laboratory Tests Test 08/07/17 20:30 08/07/17 21:25 08/08/17 06:25 White Blood Count 4.9 3.9 Red Blood Count 3.95 4.16 Hemoglobin 11.9 11.8 Hematocrit 35.2 37.1 Mean Corpuscular Volume 89.2 89.3 Mean Corpuscular Hemoglobin 30.1 28.3 Mean Corpuscular Hemoglobin Concent 33.7 31.7 Red Cell Distribution Width 14.9 14.3 Platelet Count 176 175 Mean Platelet Volume 8.2 9.0 Neutrophils (%) (Auto) 57.6 36.7 Lymphocytes (%) (Auto) 24.6 43.3 Monocytes (%) (Auto) 11.3 11.1 Eosinophils (%) (Auto) 5.9 7.9 Basophils (%) (Auto) 0.6 1.0 Neutrophils # (Auto) 2.8 1.4 Lymphocytes # (Auto) 1.2 1.8 Monocytes # (Auto) 0.6 0.4 Eosinophils # (Auto) 0.3 0.3 Basophils # (Auto) 0.0 0.0 CBC Comment DIFF FINAL DIFF FINAL Differential Comment Prothrombin Time 20.5 Prothromb Time International Ratio 2.0 Activated Partial Thromboplast Time 28.2 Blood Urea Nitrogen 12 10 Creatinine 1.30 1.20 Random Glucose 74 90 Total Protein 6.5 Albumin 3.4 Calcium Level 9.0 8.9 Alkaline Phosphatase 75 Aspartate Amino Transf (AST/SGOT) 21 Alanine Aminotransferase (ALT/SGPT) 23 Total Bilirubin 0.6 Sodium Level 141 143 Potassium Level 4.6 4.8 Chloride Level 108 111 Carbon Dioxide Level 27.7 27.4 Anion Gap 5 5 Estimat Glomerular Filtration Rate 64 70 Urine Color YELLOW Urine Turbidity CLEAR Urine pH 6.0 Urine Specific [place] LESS/EQUAL 1.005 Urine Protein NEG Urine Glucose (UA) NEG Urine Ketones NEG Urine Occult Blood NEG Urine Nitrite NEG Urine Bilirubin NEG Urine Urobilinogen 0.2 Urine Leukocyte Esterase NEG Urine Squamous Epithelial Cells 0-5 Microscopic Urinalysis Comment CULT NOT INDICATED Result Diagram: 08/08/1762408/08/17624 Caprini VTE Risk Assessment Caprini Risk Assessment Model Point Value = 1 Point Value = 2 Point Value = 3 Point Value = 5 Age 41-60 Minor surgery BMI > 25 kg/m2 Swollen legs Varicose veins or History of unexplained or recurrent spontaneous Oral contraceptives or hormone replacement Sepsis (< 1 month) Serious lung disease, including pneumonia (< 1 month) Abnormal pulmonary function Acute myocardial infarction Congestive heart failure (< 1 month) History of inflammatory bowel disease Medical patient at bed rest Age 61-74 Arthroscopic surgery Major open surgery (> 45 min) Laparoscopic surgery (> 45 min) Malignancy Confined to bed (> 72 hours) Immobilizing plaster cast Central venous access Age >= 75 History of VTE Family history of VTE Factor V Leiden Prothrombin [id number] Lupus anticoagulant Anticardiolipin antibodies Elevated serum homocysteine Heparin-induced thrombocytopenia Other congenital or acquired thrombophilia Stroke (< 1 month) Elective arthroplasty Hip, pelvis, or leg fracture Acute spinal cord injury (< 1 month) Prophylaxis Regimen Total Risk Factor Score Risk Level Prophylaxis Regimen 0-1 Low Early ambulation 2 Moderate Order ONE of the following: *Sequential Compression Device (SCD) *Heparin 5000 units SQ BID 3-4 Higher Order ONE of the following medications: *Heparin 5000 units SQ TID *Enoxaparin/Lovenox 40 mg SQ daily (WT < 150 kg, CrCl > 30 mL/min) *Enoxaparin/Lovenox 30 mg SQ daily (WT < 150 kg, CrCl > 10-29 mL/min) *Enoxaparin/Lovenox 30 mg SQ BID (WT < 150 kg, CrCl > 30 mL/min) AND/OR *Sequential Compression Device (SCD) 5 or more Highest Order ONE of the following medications: *Heparin 5000 units SQ TID (Preferred with Epidurals) *Enoxaparin/Lovenox 40 mg SQ daily (WT < 150 kg, CrCl > 30 mL/min) *Enoxaparin/Lovenox 30 mg SQ daily (WT < 150 kg, CrCl > 10-29 mL/min) *Enoxaparin/Lovenox 30 mg SQ BID (WT < 150 kg, CrCl > 30 mL/min) AND *Sequential Compression Device (SCD) Campbell Soliz MD Aug 08, 2017 12:32
[2017-08-08] MEDS ORDERED: METF500T PO (12:40)
[2017-08-08] MEDS ORDERED: amLODIPine BESYLATE 5 MG TAB PO ONE (12:45)
== END 2017-08-08 13:40 | disposition home or self-care (01) ==
LOC: PHED 19:23 → PHEDA 22:24 → PH3B 08-08 00:32
PROVIDERS: ADMIT Internal Medicine; ATTEND Internal Medicine
DX: E11.649 Type 2 diabetes mellitus with hypoglycemia without coma (principal); I48.92 Unspecified atrial flutter; R00.0 Tachycardia, unspecified; I10 Essential (primary) hypertension; E78.00 Pure hypercholesterolemia, unspecified; G47.30 Sleep apnea, unspecified; Z92.3 Personal history of irradiation; Z79.899 Other long term (current) drug therapy; Z79.01 Long term (current) use of anticoagulants; Z79.84 Long term (current) use of oral hypoglycemic drugs; Z85.46 Personal history of malignant neoplasm of prostate
CPT/HCPCS: 80048; 80053; 81001; 82948; 85025; 85610; 85730; 93005; 97161; 99285; G0378; G8987; G8988